=== PATIENT | male | born 1960 | race Asian ===

== ENCOUNTER 2020-10-13 19:19 | Emergency (ER) | payer OTHER ==
[2020-10-13 19:52] VITALS: BP 135/83; PULSE 82; TEMP 98.1; BMI 23.9
[2020-10-13] MEDS ORDERED: BACITRACIN 15 GM TUBE TOPICAL OINTMENT TP ONE (20:15)
[2020-10-13] MEDS ORDERED: DIPHTH,PERTUSS(ACELL),TET 0.5 ML DISP.SYRIN IM ONE ×2 (20:27→20:49)
[2020-10-13] MEDS ORDERED: ACETAMINOPHEN 325 MG TABLET (FP) PO ONE (20:29)
[2020-10-13] MEDS ORDERED: ACETAMINOPHEN 325 MG TABLET (FP) ONE (20:49)
== END 2020-10-13 21:49 | disposition home or self-care (01) ==
LOC: JERFT 19:19 → JER 19:19 → JERFT 21:49
PROC: 3E0234Z Introduction of Serum, Toxoid and Vaccine into Muscle, Percutaneous Approach (ICD-10-PCS; principal; 2020-10-13)
DX: S61.412A Laceration without foreign body of left hand, initial encounter (principal); W26.8XXA Contact with other sharp object(s), not elsewhere classified, initial encounter
CPT/HCPCS: 90715; 99283-25